=== PATIENT | female | born 1990 | race Caucasian/White ===

== ENCOUNTER 2016-07-21 03:00 | Emergency (ER) | payer OTHER ==
[~2016-07-21] VITALS: Ht 157.5 cm; Wt 51.1 kg
[~2016-07-21 03:00] MED LIST: ACETAMINOPHEN-1 EAC1 PO; ATARAX,VISTARIL25 MG PO; BACTRIM,SEPT1 TABLET PO; BENADRYL25 MG PO; CLEOCIN300 MG PO; DECADRON4 MG PO; ENDOCET 5-3251 EACH PO; KEFLEX500 MG PO; MACROBID100 MG PO; MOBIC7.5 MG PO; MOTRIN800 MG PO; NATALCARE RX1 TABLE1 PO; NOHOMEMEDS; Omega III EPA + DHA PO; PAIN & FEVER325 MG PO; PRENATAL VITAM1 EAC3 PO; TESSALON PERLE100 MG PO; VALACYCLOVIR500 MG PO
[2016-07-21 03:43] LABS: HEMATOCRIT 41.7 % (36.0-46.0); MCH 29.9 PG (29.0-34.0); MCHC 34.5 G/DL (30.0-36.0); MCV 86.5 FL (83-99); MEAN PLAT.VOLUME 9.8 uM^3 (9.5-12.4); PLATELET COUNT 392 K/uL (156-360); RBC DIS.WIDTH-CV 12.3 % (11.8-14.6); RBC DIS.WIDTH-SD 38.6 % (39-53); RED BLOOD COUNT 4.82 M/uL (3.80-5.20)
[2016-07-21 03:55] LABS: CHLORIDE 101 mEq/L (99-109); POTASSIUM 3.6 mEq/L (3.7-5.4); SODIUM 138 mEq/L (136-147)
[2016-07-21 03:57] LABS: GLUCOSE 138 mg/dL (70-99)
[2016-07-21 03:59] LABS: ANION GAP 11 MEQ/L (2-14); TOTAL BILIRUBIN 0.2 mg/dL (0.0-1.0)
[2016-07-21 04:01] LABS: ALKALINE PHOSPHATASE 74 IU/L (3-129); GFR ESTIMATE (CALCULATED) > 59 mL/min/
[2016-07-21 04:02] LABS: UREA NITROGEN (BUN) 8 mg/dL (9-23)
[2016-07-21 04:16] LABS: QUANTITATIVE HCG < 4.0 MIU/ML
[2016-07-21 04:22] LABS: ADD MIUA? YES; BILIRUBIN NEGATIVE; BLOOD NEGATIVE; COLOR YELLOW ((YELLOW)); GLUCOSE (STRIP) NEGATIVE; KETONES NEGATIVE; LEUKOCYTES NEGATIVE; NITRITE NEGATIVE; PROTEIN (STRIP) 30; SPECIFIC GRAVITY 1.029 (1.000-1.030); UROBILINOGEN 0.2 MG/DL (0.2-1.0)
[2016-07-21 04:38] LABS: EPITHELIAL CELLS 3+; MUCUS 3+; RED BLOOD CELLS NONE SEEN /HPF (0-5); UCUL ADDED? NO
[2016-07-21 04:39] LABS: BACTERIA 2+; CASTS PRESENT /LPF; CRYSTALS NONE SEEN; HYALINE CASTS 0-5 /LPF; WHITE BLOOD CELLS 0-5 /HPF (0-5)
[2016-07-21 04:41] VITALS: BP 108/84
== END 2016-07-21 04:42 | disposition home or self-care (01) ==
LOC: EME 03:00
DX: R10.30 Lower abdominal pain, unspecified (principal); R11.2 Nausea with vomiting, unspecified; Z32.02 Encounter for pregnancy test, result negative
CPT/HCPCS: 80053; 81003; 84702; 85027; 99281; 99284

== ENCOUNTER 2016-10-21 15:50 | Emergency (ER) | payer OTHER ==
[~2016-10-21] VITALS: Ht 160 cm; Wt 50.6 kg
[2016-10-21] MEDS ORDERED: MOTRIN600 MG PO (16:54)
[2016-10-21] MEDS ORDERED: BACLOFEN10 MG PO (16:54)
[2016-10-21 18:54] VITALS: BP 113/70
== END 2016-10-21 18:54 | disposition home or self-care (01) ==
LOC: EME 15:50
DX: S63.502A Unspecified sprain of left wrist, initial encounter (principal); S80.12XA Contusion of left lower leg, initial encounter; S60.812A Abrasion of left wrist, initial encounter; M54.6 Pain in thoracic spine; W22.11XA Striking against or struck by driver side automobile airbag, initial encounter; V43.52XA Car driver injured in collision with other type car in traffic accident, initial encounter; Y92.410 Unspecified street and highway as the place of occurrence of the external cause; Z72.0 Tobacco use
CPT/HCPCS: 73110; 73564; 99281; 99284

== ENCOUNTER 2016-11-25 02:16 | Inpatient (IN) | payer OTHER ==
[~2016-11-25] VITALS: Ht 157.5 cm; Wt 53.9 kg
[~2016-11-25 02:16] MED LIST changes: +BACLOFEN10 MG PO; +MOTRIN600 MG PO
[2016-11-25 03:10] LABS: EOSINOPHIL COUNT 0.2 K/uL (0-0.3); HEMATOCRIT 42.5 % (36.0-46.0); IMMATURE GRANULOCYTE (%) 0.5 % (0.0-0.7); IMMATURE GRANULOCYTE COUNT 0.1 K/uL; INSTRUMENT ABS NEUTROPHIL CT 18.5 K/uL; LYMPHOCYTE COUNT 0.6 K/uL (1.0-2.8); MCH 29.8 PG (29.0-34.0); MCHC 33.4 G/DL (30.0-36.0); MCV 89.1 FL (83-99); MEAN PLAT.VOLUME 9.7 uM^3 (9.5-12.4); MONOCYTE (%) 0.8 % (3-12); MONOCYTE COUNT 0.2 K/uL (0-0.8); NEUTROPHIL (%) 94.3 % (45-76); NEUTROPHIL COUNT 18.5 K/uL (1.8-6.4); PLATELET COUNT 318 K/uL (156-360); RBC DIS.WIDTH-CV 13.1 % (11.8-14.6); RBC DIS.WIDTH-SD 42.6 % (39-53); RED BLOOD COUNT 4.77 M/uL (3.80-5.20); WHITE BLOOD COUNT 19.6 K/uL (4.1-10.2)
[2016-11-25 03:18] LABS: CHLORIDE 103 mEq/L (99-109); POTASSIUM 3.8 mEq/L (3.7-5.4); SODIUM 138 mEq/L (136-147)
[2016-11-25 03:20] LABS: GLUCOSE 97 mg/dL (70-99)
[2016-11-25 03:21] LABS: ANION GAP 12 MEQ/L (2-14)
[2016-11-25 03:23] LABS: GFR ESTIMATE (CALCULATED) > 59 mL/min/
[2016-11-25 03:24] LABS: UREA NITROGEN (BUN) 12 mg/dL (9-23)
[2016-11-25 03:30] LABS: TROP-I INTERPRETATION NEGATIVE; TROPONIN-I < 0.01 ng/mL (0.0-0.30)
[2016-11-25 04:33] LABS: INFLUENZA A VIRAL ANTIGEN NEGATIVE; INFLUENZA B VIRAL ANTIGEN NEGATIVE
[2016-11-25 05:23] LABS: BILIRUBIN NEGATIVE; BLOOD NEGATIVE; COLOR STRAW ((YELLOW)); GLUCOSE (STRIP) NEGATIVE; KETONES NEGATIVE; LEUKOCYTES NEGATIVE; NITRITE NEGATIVE; PROTEIN (STRIP) NEGATIVE; SPECIFIC GRAVITY 1.008 (1.000-1.030); UROBILINOGEN 0.2 MG/DL (0.2-1.0)
[2016-11-25 05:24] LABS: ADD MIUA? NO; UCUL ADDED? NO
[2016-11-25 06:01] VITALS: BP 101/53
[2016-11-25 08:09] VITALS: BP 93/55
[2016-11-25 11:26] VITALS: BP 111/61
[2016-11-25 15:31] VITALS: BP 115/77
[2016-11-25 20:45] VITALS: BP 111/65
[2016-11-25 23:28] VITALS: BP 95/51
[2016-11-26 04:50] VITALS: BP 128/75
[2016-11-26 07:19] VITALS: BP 101/62
[2016-11-26 07:57] LABS: ALKALINE PHOSPHATASE 64 IU/L (3-129); ANION GAP 8 MEQ/L (2-14); CHLORIDE 108 MEQ/L (99-109); GFR ESTIMATE (CALCULATED) > 59 mL/min/; GLUCOSE 79 mg/dL (70-99); POTASSIUM 4.2 MEQ/L (3.7-5.4); SAMPLE HEMOLYSIS CHECK 0; SAMPLE ICTERIC CHECK 0; SAMPLE LIPEMIA CHECK 0; SODIUM 142 MEQ/L (136-147); TOTAL BILIRUBIN 0.2 MG/DL (0.0-1.0); UREA NITROGEN (BUN) 6 mg/dL (9-23)
[2016-11-26 08:03] LABS: HEMATOCRIT 38.2 % (36.0-46.0); MCHC 33.5 G/DL (30.0-36.0); MCV 89.7 FL (83-99); MEAN PLAT.VOLUME 11.2 uM^3 (9.5-12.4); PLATELET COUNT 246 K/uL (156-360); RBC DIS.WIDTH-CV 13.7 % (11.8-14.6); RBC DIS.WIDTH-SD 44.7 % (39-53); RED BLOOD COUNT 4.26 M/uL (3.80-5.20)
[2016-11-26 08:22] LABS: WHITE BLOOD COUNT 6.3 K/uL (4.1-10.2)
[2016-11-26 10:07] LABS: HPCA INDEX 0.15
[2016-11-26 11:35] VITALS: BP 102/71
[2016-11-26 11:43] VITALS: BP 101/68
== END 2016-11-26 14:51 | disposition home or self-care (01) | DRG 866 ==
LOC: EME 02:16 → EDOF 04:54 → 4EAST 05:37
PROVIDERS: Emergency Medicine; Internal Medicine
DX: B34.9 Viral infection, unspecified (principal); F11.20 Opioid dependence, uncomplicated; R50.9 Fever, unspecified; R13.10 Dysphagia, unspecified; J02.9 Acute pharyngitis, unspecified; F17.210 Nicotine dependence, cigarettes, uncomplicated; R00.0 Tachycardia, unspecified; F32.9 Major depressive disorder, single episode, unspecified; F41.9 Anxiety disorder, unspecified
CPT/HCPCS: 71020; 71275; 74176; 80048; 80053; 81003; 83605; 84484; 85025; 85027; 86803; 87040; 87502; 87651 90; 93005; 93306; 99281; 99285; J1885; J2543; J3370; J7030; J7050

== ENCOUNTER 2017-12-06 16:16 | Emergency (ER) | payer OTHER ==
[~2017-12-06] VITALS: Ht 157.5 cm; Wt 63.0 kg
[2017-12-06 16:55] LABS: HEMATOCRIT 40.5 % (36.0-46.0); MCH 30.9 PG (29.0-34.0); MCHC 34.6 G/DL (30.0-36.0); MCV 89.4 FL (83-99); PLATELET COUNT 287 K/uL (156-360); RBC DIS.WIDTH-CV 11.9 % (11.8-14.6); RBC DIS.WIDTH-SD 38.3 % (39-53); RED BLOOD COUNT 4.53 M/uL (3.80-5.20); WHITE BLOOD COUNT 7.5 K/uL (4.1-10.2)
[2017-12-06 17:03] LABS: ALBUMIN 4.3 g/dL (3.2-4.8)
[2017-12-06 17:03] LABS: APPEARANCE TURBID ((CLEAR)); BILIRUBIN NEGATIVE; BLOOD LARGE; COLOR YELLOW ((YELLOW)); GLUCOSE (STRIP) NEGATIVE; KETONES NEGATIVE; LEUKOCYTES MODERATE; NITRITE NEGATIVE; PROTEIN (STRIP) 100; SPECIFIC GRAVITY 1.013 (1.000-1.030); UROBILINOGEN 0.2 MG/DL (0.2-1.0)
[2017-12-06 17:04] LABS: CHLORIDE 102 mEq/L (99-109); POTASSIUM 3.8 mEq/L (3.7-5.4); SODIUM 140 mEq/L (136-147)
[2017-12-06 17:06] LABS: GLUCOSE 63 mg/dL (70-99); TOTAL PROTEIN 7.3 g/dL (6.4-8.3)
[2017-12-06 17:08] LABS: TOTAL BILIRUBIN 0.3 mg/dL (0.0-1.0)
[2017-12-06 17:09] LABS: ALKALINE PHOSPHATASE 72 IU/L (3-129)
[2017-12-06 17:10] LABS: CREATININE 0.8 mg/dL (0.6-1.3); GFR ESTIMATE (CALCULATED) > 59 mL/min/
[2017-12-06 17:11] LABS: AST (GOT) 19 IU/L (2-34); UREA NITROGEN (BUN) 7 mg/dL (9-23)
[2017-12-06 17:12] LABS: ALT (GPT) 16 IU/L (3-49)
[2017-12-06 17:17] LABS: AMORPHOUS PHOSPHATE CRYSTALS 3+; BACTERIA 2+ /HPF; EPITHELIAL CELLS 1+ /HPF; MUCUS 1+ /LPF; UCUL ADDED? YES; WHITE BLOOD CELLS 0-5 /HPF (0-5)
[2017-12-06 17:21] LABS: QUANTITATIVE HCG < 4.0 MIU/ML
[2017-12-06 17:45] VITALS: BP 114/65
== END 2017-12-06 17:46 | disposition home or self-care (01) ==
LOC: EME 16:16
PROVIDERS: Physician Assistant
DX: N93.9 Abnormal uterine and vaginal bleeding, unspecified (principal); F32.9 Major depressive disorder, single episode, unspecified; F41.9 Anxiety disorder, unspecified; B19.20 Unspecified viral hepatitis C without hepatic coma; F17.200 Nicotine dependence, unspecified, uncomplicated
CPT/HCPCS: 80053; 81003; 84702; 85027; 86900; 86901; 87086; 99281; 99284